=== PATIENT | female | born 1965 | race Caucasian/White ===

== ENCOUNTER 2021-03-20 17:34 | Emergency (ER) | payer OTHER ==
[~2021-03-20] VITALS: Ht 172.7 cm; Wt 145.2 kg
[~2021-03-20 17:34] MED LIST: ALPHA LIPOIC A300 MG PO; CEFDINIR300 MG PO; CIPRODEX OTIC7.5 ML AD; CLARITIN10 M2 PO; COREG3.125 MG PO; DIFLUCAN150 MG PO; FIORICET-COD 51 EACH PO; FOLIC ACID1 MG PO; FUROSEMIDE5 GM PO; GABAPENTIN300 MG PO; GLUCOPHAGE XR750 MG PO; HYDROXYZINE HCL50 MG PO; JANUVIA100 MG PO; LISINOPRIL40 MG PO; NORCO 10-325 T1 EACH PO; OXYCODONE HCL5 MG PO; PANTOPRAZOLE SO40 MG PO; VITAMIN B-12250 MCG PO; VITAMIN D250000 UNIT PO; ZOFRAN ODT4 MG PO; ZOLPIDEM TARTRA10 MG PO
[2021-03-20] MEDS ORDERED: JANUVIA50 MG PO (21:37)
== END 2021-03-20 23:23 | disposition home or self-care (01) ==
LOC: ED 17:34
DX: S61.215A Laceration without foreign body of left ring finger without damage to nail, initial encounter (principal); S61.217A Laceration without foreign body of left little finger without damage to nail, initial encounter; W26.0XXA Contact with knife, initial encounter; E11.9 Type 2 diabetes mellitus without complications; I10 Essential (primary) hypertension; Z88.8 Allergy status to other drugs, medicaments and biological substances; Z88.0 Allergy status to penicillin; Z88.1 Allergy status to other antibiotic agents; Z91.048 Other nonmedicinal substance allergy status; Z79.899 Other long term (current) drug therapy
CPT/HCPCS: 12002; 90471; 90715; 99282-25

== ENCOUNTER 2021-10-22 20:16 | Emergency (ER) | payer OTHER ==
[~2021-10-22] VITALS: Ht 172.7 cm; Wt 143.8 kg
[~2021-10-22 20:16] MED LIST changes: +JANUVIA50 MG PO
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
[2021-10-22] MEDS ORDERED: HYDROCODON-ACE1 EA10 PO (22:15)
== END 2021-10-22 22:25 | disposition home or self-care (01) ==
LOC: ED 20:16
DX: S16.1XXA Strain of muscle, fascia and tendon at neck level, initial encounter (principal); S00.03XA Contusion of scalp, initial encounter; S40.012A Contusion of left shoulder, initial encounter; S20.20XA Contusion of thorax, unspecified, initial encounter; I10 Essential (primary) hypertension; E11.9 Type 2 diabetes mellitus without complications; Z88.0 Allergy status to penicillin; Z88.8 Allergy status to other drugs, medicaments and biological substances; Z91.048 Other nonmedicinal substance allergy status; Z79.899 Other long term (current) drug therapy; V89.2XXA Person injured in unspecified motor-vehicle accident, traffic, initial encounter; Y92.410 Unspecified street and highway as the place of occurrence of the external cause
CPT/HCPCS: 70450; 71260; 72125; 73030; 74177; 99284-25; Q9967